=== PATIENT | male | born 1970 | race Caucasian/White ===

== ENCOUNTER 2019-04-15 11:52 | Emergency (ER) | payer SELFPAY ==
--- NOTE | 2019-04-15 13:55 | EDPHYS ---
Physician Documentation [facility] Name: Delonte Brown Age: 49 yrs Sex: Male : 1970 Arrival Date: 04/15/2019 Time: 11:55 Bed 11 Private MD: ED Physician David Estrada HPI: 04/15 16:31 This 49 yrs old Male presents to ER via Wheelchair with complaints of Back snw Pain. 16:31 The patient presents with pain that is acute. The symptoms are located in the low back. snw Onset: The symptoms/episode began/occurred suddenly, 1 week(s) ago, and became persistent. The pain does not radiate. Associated signs and symptoms: Pertinent positives: none Pertinent negatives: dysuria, fever, numbness, tingling, urinary retention, weakness. The problem was sustained pt had a back injury remotely. [place] a tweak in his lower back last week. Has been moving, lifting only light things, going up and down on ladders. This am pt stepped around a corner and had such pain in left low back, he fell to his knees. Pt ambulatory in ED, sitting in chair with ankles crossed in no distress.. 16:38 Severity of symptoms: At their worst the symptoms were incapacitating, in the emergency snw department the symptoms have improved, moderately. The patient has experienced a previous episode, many years ago. It is unknown whether or not the patient has recently seen a physician. no fever, no trauma, no incontinence. Historical: - Allergies: 12:15 Percocet; aj1 - Home Meds: 12:15 None [Active]; aj1 - PMHx: 12:15 back injury; aj1 - Immunization history:: Adult Immunizations up to date. - Social history:: Smoking status: Patient uses tobacco products, smokes two packs cigarettes per day. - Ebola Screening: : Patient denies travel to an Ebola-affected area in the 21 days before illness onset. ROS: 16:31 Constitutional: Negative for fever, chills, and weight loss, Eyes: Negative for injury, snw pain, redness, and discharge, ENT: Negative for injury, pain, and discharge, Neck: Negative for injury, pain, and swelling, Cardiovascular: Negative for chest pain, palpitations, and edema, Respiratory: Negative for shortness of breath, cough, wheezing, and pleuritic chest pain, Abdomen/GI: Negative for abdominal pain, nausea, vomiting, diarrhea, and constipation, : Negative for injury, bleeding, discharge, and swelling, MS/Extremity: Negative for injury and deformity, Skin: Negative for injury, rash, and discoloration, Neuro: Negative for headache, weakness, numbness, tingling, and seizure. 16:31 Back: Positive for decreased range of motion, pain at rest, pain with movement, of the low back area, left greater than right, no radiation. Exam: 16:29 Constitutional: This is a well developed, well nourished patient who is awake, alert, snw and in no acute distress. Head/Face: Normocephalic, atraumatic. Eyes: Pupils equal round and reactive to light, extra-ocular motions intact. Lids and lashes normal. Conjunctiva and sclera are non-icteric and not injected. Cornea within normal limits. Periorbital areas with no swelling, redness, or edema. ENT: Nares patent. No nasal discharge, no septal abnormalities noted. Tympanic membranes are normal and external auditory canals are clear. Oropharynx with no redness, swelling, or masses, exudates, or evidence of obstruction, uvula midline. Mucous membranes moist. Neck: Trachea midline, no thyromegaly or masses palpated, and no cervical lymphadenopathy. Supple, full range of motion without nuchal rigidity, or vertebral point tenderness. No Meningismus. Chest/axilla: Normal chest wall appearance and motion. Nontender with no deformity. No lesions are appreciated. Cardiovascular: Regular rate and rhythm with a normal S1 and S2. No gallops, murmurs, or rubs. Normal PMI, no JVD. No pulse deficits. Respiratory: Lungs have equal breath sounds bilaterally, clear to auscultation and percussion. No rales, rhonchi or wheezes noted. No increased work of breathing, no retractions or nasal flaring. Abdomen/GI: Soft, non-tender, with normal bowel sounds. No distension or tympany. No guarding or rebound. No evidence of tenderness throughout. Skin: Warm, dry with normal turgor. Normal color with no rashes, no lesions, and no evidence of cellulitis. MS/ Extremity: Pulses equal, no cyanosis. Neurovascular intact. Full, normal range of motion. Neuro: Awake and alert, GCS 15, oriented to person, place, time, and situation. Cranial nerves II-XII grossly intact. Motor strength 5/5 in all extremities. Sensory grossly intact. Cerebellar exam normal. Normal gait. Psych: Awake, alert, with orientation to person, place and time. Behavior, mood, and affect are within normal limits. 16:29 Back: pain, that is moderate, of the low back area, ROM is normal, normal spinal alignment noted, CVA tenderness, is absent. 16:29 Neuro: Exam negative for acute changes, Orientation: is normal. Vital Signs: 12:15 BP 104 / 78; Pulse 89; Resp 18; Temp 97.7; Pulse Ox 100% on R/A; Weight 70.31 kg (R); aj1 Height 6 ft. 1 in. (185.42 cm) (R); Pain 10/10; 12:15 Body Mass Index 20.45 (70.31 kg, 185.42 cm) aj1 MDM: 13:24 Patient medically screened. [facility] 13:56 Data reviewed: vital signs, nurses notes. Data interpreted: Pulse oximetry: on room air snw is 100 %. Interpretation: normal. Counseling: I had a detailed discussion with the patient and/or guardian regarding: the historical points, exam findings, and any diagnostic results supporting the discharge/admit diagnosis, the need for outpatient follow up, to return to the emergency department if symptoms worsen or persist or if there are any questions or concerns that arise at home, smoking cessation. Special discussion: Based on the history and exam findings, there is no indication for further emergent testing or inpatient evaluation. I discussed with the patient/guardian the need to see the back specialist for further evaluation of the symptoms. I discussed with the patient/guardian the need to see the primary care provider for further evaluation of the symptoms. Administered Medications: 14:06 Drug: TORadol 30 mg Route: IM; Site: right deltoid; hb 14:25 Follow up: Response: No adverse reaction hb Disposition: 20:36 Co-signature as Attending Physician, David Estrada MD I agree with the assessment and [facility] plan of care. Disposition: 04/15/19 13:55 Discharged to Home. Impression: Low back pain. - Condition is Stable. - Discharge Instructions: Back Pain, Adult, Musculoskeletal Pain, Steps to Quit Smoking, Smoking Hazards, Cryotherapy, Rehydration, Adult, Heat Therapy. - Prescriptions for Diclofenac Sodium 75 mg Oral Tablet Sustained Release - take 1 tablet by ORAL route 2 times per day; 30 tablet. orphenadrine citrate 100 mg Oral Tablet Sustained Release - take 1 tablet by ORAL route 2 times per day As needed; 20 tablet. - Work release form, Medication Reconciliation Form, Thank You Letter, Antibiotic Education, Prescription Opioid Use form. - Follow up: Emergency Department; When: As needed; Reason: Worsening of condition. Follow up: Private Physician; When: 2 - 3 days; Reason: Recheck today's complaints, Continuance of care, Re-evaluation by your physician. Signatures: Stephanie Fleming RN RN ajDavid Lopes MD MD cha Therrien, Shelly, ERIC-C SLUNK SKIN CURER-Christin Shultz RN RN hb Corrections: (The following items were deleted from the chart) 14:33 13:55 04/15/2019 13:55 Discharged to Home. Impression: Low back pain. Condition is hb Stable. Forms are Medication Reconciliation Form, Thank You Letter, Antibiotic Education, Prescription Opioid Use. Follow up: Emergency Department; When: As needed; Reason: Worsening of condition. Follow up: Private Physician; When: 2 - 3 days; Reason: Recheck today's complaints, Continuance of care, Re-evaluation by your physician. snw
--- NOTE | 2019-04-15 13:55 | ER ---
Nurse's Notes [facility] Name: Delonte Brown Age: 49 yrs Sex: Male : 1970 Arrival Date: 04/15/2019 Time: 11:55 Bed 11 Private MD: Diagnosis: Low back pain Presentation: 04/15 12:13 Presenting complaint: Patient states: Lower back pain for the past 2 weeks that is aj1 worse this morning, states that he is unable to walk because the pain is so bad. Patient states that he injured his back 15 years ago, denies any recent injury. States that he recent moved a lot of heavy boxes. Transition of care: patient was not received from another setting of care. Onset of symptoms was April 15, 2019. Risk Assessment: Do you want to hurt yourself or someone else? Patient reports no desire to harm self or others. Initial Sepsis Screen: Does the patient meet any 2 criteria? HR > 90 bpm. No. Patient's initial sepsis screen is negative. Does the patient have a suspected source of infection? No. Patient's initial sepsis screen is negative. Care prior to arrival: None. 12:13 Method Of Arrival: Wheelchair aj1 12:13 Acuity: NO 4 aj1 Triage Assessment: 12:15 General: Appears in no apparent distress. uncomfortable, Behavior is calm, cooperative, aj1 appropriate for age. Pain: Complains of pain in back Pain currently is 10 out of 10 on a pain scale. Neuro: Level of Consciousness is awake, alert, obeys commands. Cardiovascular: Patient's skin is warm and dry. Respiratory: Airway is patent Respiratory effort is even, unlabored, Respiratory pattern is regular, symmetrical. Musculoskeletal: Range of motion: intact in all extremities. Historical: - Allergies: 12:15 Percocet; aj1 - Home Meds: 12:15 None [Active]; aj1 - PMHx: 12:15 back injury; aj1 - Immunization history:: Adult Immunizations up to date. - Social history:: Smoking status: Patient uses tobacco products, smokes two packs cigarettes per day. - Ebola Screening: : Patient denies travel to an Ebola-affected area in the 21 days before illness onset. Screenin:38 Abuse screen: Denies threats or abuse. Denies injuries from another. Nutritional hb screening: No deficits noted. Tuberculosis screening: No symptoms or risk factors identified. Fall Risk None identified. Assessment: 13:38 General: Appears in no apparent distress. Behavior is calm, cooperative. Pain: Pain hb currently is 8 out of 10 on a pain scale. Neuro: Level of Consciousness is awake, alert, obeys commands, Oriented to person, place, time, situation. Cardiovascular: Capillary refill < 3 seconds Patient's skin is warm and dry. Respiratory: Airway is patent Respiratory effort is even, unlabored, Respiratory pattern is regular, symmetrical. GI: No signs and/or symptoms were reported involving the gastrointestinal system. : No signs and/or symptoms were reported regarding the genitourinary system. EENT: No signs and/or symptoms were reported regarding the EENT system. Derm: Skin is pink, warm \T\ dry. Musculoskeletal: Reports low back pain. 14:32 Reassessment: Patient appears in no apparent distress at this time. Patient and/or hb family updated on plan of care and expected duration. Pain level reassessed. Patient is alert, oriented x 3, equal unlabored respirations, skin warm/dry/pink. Vital Signs: 12:15 BP 104 / 78; Pulse 89; Resp 18; Temp 97.7; Pulse Ox 100% on R/A; Weight 70.31 kg (R); aj1 Height 6 ft. 1 in. (185.42 cm) (R); Pain 10/10; 12:15 Body Mass Index 20.45 (70.31 kg, 185.42 cm) aj1 ED Course: 11:55 Patient arrived in ED. rg4 12:14 Triage completed. aj1 12:15 Arm band placed on Patient placed in waiting room, Patient notified of wait time. aj1 12:40 Yady Wallace FNP-C is PHCP. snw 12:40 David Estrada MD is Attending Physician. snw 13:38 Christin Benitez, LAYTON is Primary Nurse. hb 13:38 Patient has correct armband on for positive identification. Call light in reach. hb 14:32 No provider procedures requiring assistance completed. Patient did not have IV access hb during this emergency room visit. Administered Medications: 14:06 Drug: TORadol 30 mg Route: IM; Site: right deltoid; hb 14:25 Follow up: Response: No adverse reaction hb Outcome: 13:55 Discharge ordered by . snw 14:32 Discharged to home via wheelchair, with significant other. hb 14:32 Condition: stable 14:32 Discharge instructions given to patient, Instructed on discharge instructions, follow up and referral plans. medication usage, Demonstrated understanding of instructions, follow-up care, medications, Prescriptions given X 2. 14:33 Patient left the ED. hb Signatures: Stephanie Fleming RN RN aj1 Yady Wallace, ROTARY SURFACE GRINDER-C ROTARY SURFACE GRINDER-Csnw Christin Benitez RN RN Gerri Delong rg4
[2019-04-15] MEDS ORDERED: KETOROLAC 30 MG/ML INJ ONE (14:07)
[2019-04-15 14:40] VITALS: BP 104/78; TEMP 97.7; O2SAT 100
== END 2019-04-15 14:33 | disposition home or self-care (01) ==
LOC: ER 11:52
DX: M54.5 Low back pain (principal); F17.210 Nicotine dependence, cigarettes, uncomplicated; Z88.5 Allergy status to narcotic agent
CPT/HCPCS: 96372; 99283

== ENCOUNTER 2019-07-12 15:36 | Emergency (ER) | payer SELFPAY ==
[2019-07-12] MEDS ORDERED: LIDOCAINE VISCOUS 2% SOLN 15 ML UDC ONE (16:20)
[2019-07-12] MEDS ORDERED: MAGNE/ALUM HYDROXD 30 ML UCUP ONE (16:20)
[2019-07-12 16:24] LABS: Absolute Lymphocytes (CBC) 2.4 K/uL (0.7-4.9); Basophils % 0.5 % (0-1.3); Hematocrit 46.5 % (39.6-49.0); Lymphocytes % 13.6 % (15.3-44.8); MPV 7.9 fL (7.6-11.3); RBC Red Blood Cell Count 4.94 M/uL (4.33-5.43)
[2019-07-12 16:38] LABS: BUN Blood Urea Nitrogen 4 mg/dL (7-18); Bicarbonate 27 mmol/L (21-32); Glucose Level 94 mg/dL (74-106); Potassium 3.9 mmol/L (3.5-5.1); Sodium Level 137 mmol/L (136-145)
--- NOTE | 2019-07-12 16:53 | EDPHYS ---
Physician Documentation [facility] Name: Delonte Brown Age: 49 yrs Sex: Male : 1970 Arrival Date: 07/12/2019 Time: 15:38 Bed 25 Private MD: SHIRA Physician David Estrada HPI: 07/11 16:04 This 49 yrs old Male presents to ER via Ambulatory with complaints of chidi Swelling Of Tongue, Mouth Problem, Sore Throat. 16:04 The patient presents with pain, redness, swelling. The problem is located in the hard chidi palate, soft palate, left buccal mucosa, right buccal mucosa, uvula, left aspect of posterior pharynx, right aspect of posterior pharynx and tongue. Onset: The symptoms/episode began/occurred 3 day(s) ago. Duration: The symptoms are continuous, and are steadily getting worse. Modifying factors: The symptoms are alleviated by nothing, the symptoms are aggravated by nothing. Associated signs and symptoms: Pertinent positives: pain, swelling. Severity of symptoms: At their worst the symptoms were moderate, earlier today, in the emergency department the symptoms are actually worse, mildly. The patient has not experienced similar symptoms in the past. Historical: - Allergies: 15:52 Percocet; ca1 - Home Meds: 15:52 None [Active]; ca1 - PMHx: 15:52 Back injury; ca1 - PSHx: 15:52 Neck Surgery; ca1 - Immunization history:: Adult Immunizations up to date, Flu vaccine is not up to date. - Social history:: Smoking status: Patient reports the use of cigarette tobacco products, smokes two packs cigarettes per day. - Family history:: not pertinent. ROS: 16:04 Constitutional: Negative for fever, chills, and weight loss, Eyes: Negative for injury, chidi pain, redness, and discharge, Neck: Negative for injury, pain, and swelling, Cardiovascular: Negative for chest pain, palpitations, and edema, Respiratory: Negative for shortness of breath, cough, wheezing, and pleuritic chest pain, Abdomen/GI: Negative for abdominal pain, nausea, vomiting, diarrhea, and constipation, Back: Negative for injury and pain, : Negative for injury, bleeding, discharge, and swelling, MS/Extremity: Negative for injury and deformity, Skin: Negative for injury, rash, and discoloration, Neuro: Negative for headache, weakness, numbness, tingling, and seizure, Psych: Negative for depression, anxiety, suicide ideation, homicidal ideation, and hallucinations, Allergy/Immunology: Negative for hives, rash, and allergies, Endocrine: Negative for neck swelling, polydipsia, polyuria, polyphagia, and marked weight changes, Hematologic/Lymphatic: Negative for swollen nodes, abnormal bleeding, and unusual bruising. 16:04 ENT: Positive for difficulty swallowing, Gum pain Exam: 16:04 Constitutional: This is a well developed, well nourished patient who is awake, alert, chidi and in no acute distress. Head/Face: Normocephalic, atraumatic. Eyes: Pupils equal round and reactive to light, extra-ocular motions intact. Lids and lashes normal. Conjunctiva and sclera are non-icteric and not injected. Cornea within normal limits. Periorbital areas with no swelling, redness, or edema. Neck: Trachea midline, no thyromegaly or masses palpated, and no cervical lymphadenopathy. Supple, full range of motion without nuchal rigidity, or vertebral point tenderness. No Meningismus. Chest/axilla: Normal chest wall appearance and motion. Nontender with no deformity. No lesions are appreciated. Cardiovascular: Regular rate and rhythm with a normal S1 and S2. No gallops, murmurs, or rubs. Normal PMI, no JVD. No pulse deficits. Respiratory: Lungs have equal breath sounds bilaterally, clear to auscultation and percussion. No rales, rhonchi or wheezes noted. No increased work of breathing, no retractions or nasal flaring. Abdomen/GI: Soft, non-tender, with normal bowel sounds. No distension or tympany. No guarding or rebound. No evidence of tenderness throughout. Back: No spinal tenderness. No costovertebral tenderness. Full range of motion. Skin: Warm, dry with normal turgor. Normal color with no rashes, no lesions, and no evidence of cellulitis. MS/ Extremity: Pulses equal, no cyanosis. Neurovascular intact. Full, normal range of motion. Neuro: Awake and alert, GCS 15, oriented to person, place, time, and situation. Cranial nerves II-XII grossly intact. Motor strength 5/5 in all extremities. Sensory grossly intact. Cerebellar exam normal. Normal gait. Psych: Awake, alert, with orientation to person, place and time. Behavior, mood, and affect are within normal limits. 16:04 ENT: Mouth: Oral mucosa: moist, noted to have obvious thrush, Gums: noted to have cellulitis, reddened, swollen, Tongue: is moist, is swollen, tender, displays thrush, abscess, is not appreciated, drooling, that is mild. 16:04 ENT: Posterior pharynx: Airway: normal, no evidence of obstruction. [facility] Vital Signs: 15:45 BP 153 / 99; Pulse 88; Resp 17 S; Temp 98.2(TE); Pulse Ox 100% on R/A; Weight 68.04 kg ca1 (R); Height 6 ft. 0 in. (182.88 cm) (R); Pain 10/10; 16:23 BP 147 / 103; Pulse 99; Resp 17; Temp 98.4(TE); Pulse Ox 100% on R/A; mh5 17:25 BP 138 / 84; Pulse 78; Resp 14; Temp 98.4; Pulse Ox 99% on R/A; Pain 5/10; ls4 15:45 Body Mass Index 20.34 (68.04 kg, 182.88 cm) ca1 MDM: 15:53 Patient medically screened. [facility] 16:56 Data reviewed: vital signs, nurses notes, lab test result(s), CBC, electrolytes. [facility] 16:56 ED course: pt improved with maalox and viscous lido, will treat with nystatin, mdp, chidi maalox, benadryl and keflex. follow up with dr beck, return to the er if worse. 07/11 16:04 Order name: CBC with Diff; Complete Time: 16:35 [facility] 07/11 16:04 Order name: Chem 7; Complete Time: 16:39 [facility] Administered Medications: 16:29 Drug: GI Cocktail without - (Maalox Suspension 30 ml, Lidocaine Liquid 2 % 15 ls4 ml) Route: PO; 23:21 Not Given (OTHER): predniSONE 40 mg PO once ls4 23:22 Not Given (ORDERED AFTER DISCHARGE ): nystatin 654925 units PO once; swish and swallow ls4 23:22 Not Given (ORDERED AFTER DISCHARGE ): KeFLEX 500 mg PO once ls4 Disposition: 07/12/19 16:52 Discharged to Home. Impression: Stomatitis and related lesions, Candidal stomatitis, Elevated white blood cell count. - Condition is Stable. - Discharge Instructions: Steps to Quit Smoking, Smoking Hazards, Thrush, Adult, Stomatitis, Steps to Quit Smoking, [id number], Thrush, Adult, [id number], Stomatitis, [id number]. - Prescriptions for Maalox Maximum Strength - take 30 milliliter by ORAL route 5 times per day mix with 2 teaspoons of benadryl, swish and swallow; 150 milliliter. nystatin 100,000 unit/mL Oral suspension - take 4 milliliter by ORAL route 4 times per day; 100 milliliter. Medrol (Gilberto) 4 mg Oral Tablets, Dose Pack - take 1 tablet by ORAL route as directed - follow package instructions; 1 packet. Keflex 500 mg Oral Capsule - take 1 capsule by ORAL route every 6 hours for 10 days; 28 capsule. Lidocaine Viscous - take 10 milliliter by ORAL route 5 times per day; 100 milliliter. Benadryl 25 mg Oral Capsule - take 1 capsule by ORAL route every 6 hours As needed; 30 tablet. - Medication Reconciliation Form, Thank You Letter, Antibiotic Education, Prescription Opioid Use form. - Follow up: Private Physician; When: 2 - 3 days; Reason: Recheck today's complaints, Continuance of care, Re-evaluation by your physician. Follow up: Sudhakar Beck DDS; When: 2 - 3 days; Reason: Recheck today's complaints, Re-evaluation by your physician. - Problem is new. - Symptoms have improved. Signatures: Dispatcher [employer] [facility] David Estrada MD MD cha Stewart, Lisa, RN RN ls4 Meliza Bowling RN RN ca1 Corrections: (The following items were deleted from the chart) 16:55 16:52 07/12/2019 16:52 Discharged to Home. Impression: Stomatitis and related lesions; chidi Candidal stomatitis. Condition is Stable. Discharge Instructions: Stomatitis, Stomatitis, [id number], Thrush, Adult, Thrush, Adult, [id number]. Prescriptions for Maalox Maximum Strength - take 30 milliliter by ORAL route 5 times per day mix with 2 teaspoons of benadryl, swish and swallow; 150 milliliter, nystatin 100,000 unit/mL Oral suspension - take 4 milliliter by ORAL route 4 times per day; 100 milliliter, Medrol (Gilberto) 4 mg Oral Tablets, Dose Pack - take 1 tablet by ORAL route as directed - follow package instructions; 1 packet. and Forms are Medication Reconciliation Form, Thank You Letter, Antibiotic Education, Prescription Opioid Use. Follow up: Private Physician; When: 2 - 3 days; Reason: Recheck today's complaints, Continuance of care, Re-evaluation by your physician. Problem is new. Symptoms have improved. chidi 16:55 16:55 07/12/2019 16:52 Discharged to Home. Impression: Stomatitis and related lesions; chidi Candidal stomatitis; Elevated white blood cell count. Condition is Stable. Discharge Instructions: Stomatitis, Stomatitis, [id number], Thrush, Adult, Thrush, Adult, [id number]. Prescriptions for Maalox Maximum Strength - take 30 milliliter by ORAL route 5 times per day mix with 2 teaspoons of benadryl, swish and swallow; 150 milliliter, nystatin 100,000 unit/mL Oral suspension - take 4 milliliter by ORAL route 4 times per day; 100 milliliter, Medrol (Gilberto) 4 mg Oral Tablets, Dose Pack - take 1 tablet by ORAL route as directed - follow package instructions; 1 packet, Keflex 500 mg Oral Capsule - take 1 capsule by ORAL route every 6 hours for 10 days; 28 capsule, Lidocaine Viscous - take 10 milliliter by ORAL route 5 times per day; 100 milliliter, Benadryl 25 mg Oral Capsule - take 1 capsule by ORAL route every 6 hours As needed; 30 tablet. and Forms are Medication Reconciliation Form, Thank You Letter, Antibiotic Education, Prescription Opioid Use. Follow up: Private Physician; When: 2 - 3 days; Reason: Recheck today's complaints, Continuance of care, Re-evaluation by your physician. Problem is new. Symptoms have improved. chidi 17:08 16:55 07/12/2019 16:52 Discharged to Home. Impression: Stomatitis and related lesions; ls4 Candidal stomatitis; Elevated white blood cell count. Condition is Stable. Discharge Instructions: Stomatitis, Stomatitis, [id number], Thrush, Adult, Thrush, Adult, [id number]. Prescriptions for Maalox Maximum Strength - take 30 milliliter by ORAL route 5 times per day mix with 2 teaspoons of benadryl, swish and swallow; 150 milliliter, nystatin 100,000 unit/mL Oral suspension - take 4 milliliter by ORAL route 4 times per day; 100 milliliter, Medrol (Gilberto) 4 mg Oral Tablets, Dose Pack - take 1 tablet by ORAL route as directed - follow package instructions; 1 packet, Keflex 500 mg Oral Capsule - take 1 capsule by ORAL route every 6 hours for 10 days; 28 capsule, Lidocaine Viscous - take 10 milliliter by ORAL route 5 times per day; 100 milliliter, Benadryl 25 mg Oral Capsule - take 1 capsule by ORAL route every 6 hours As needed; 30 tablet. and Forms are Medication Reconciliation Form, Thank You Letter, Antibiotic Education, Prescription Opioid Use. Follow up: Private Physician; When: 2 - 3 days; Reason: Recheck today's complaints, Continuance of care, Re-evaluation by your physician. Follow up: Sudhakar Beck; When: 2 - 3 days; Reason: Recheck today's complaints, Re-evaluation by your physician. Problem is new. Symptoms have improved. chidi
--- NOTE | 2019-07-12 16:53 | ER ---
Nurse's Notes [facility] Name: Delonte Brown Age: 49 yrs Sex: Male : 1970 Arrival Date: 07/12/2019 Time: 15:38 Bed 25 Private MD: Diagnosis: Stomatitis and related lesions;Candidal stomatitis;Elevated white blood cell count Presentation: 07/11 15:45 Chief complaint: Patient states: Thursday, weird feeling in the mouth, lost voice at that ca1 night. Had history of Laryngitis last year for about 2 weeks. Monitored temperature everyday, never had a fever. Yesterday, voice was back but started having mouth pain-tongue, cheek, lips and tongue swelling. Coronavirus screen: Proceed with normal triage. Patient denies a cough. Patient denies shortness of breath or difficulty breathing. Patient denies measured and/or subjective temperature greater than 100.4F prior to today's visit. Patient denies travel on a cruise ship or to a country the [facility] currently lists as an affected area. Patient denies contact with known and/or suspected case of COVID-19. Ebola Screen: Patient negative for fever greater than or equal to 101.5 degrees Fahrenheit, and additional compatible Ebola Virus Disease symptoms Patient denies exposure to infectious person. Patient denies travel to an Ebola-affected area in the 21 days before illness onset. No symptoms or risks identified at this time. Initial Sepsis Screen: Does the patient meet any 2 criteria? No. Patient's initial sepsis screen is negative. Does the patient have a suspected source of infection? No. Patient's initial sepsis screen is negative. Risk Assessment: Do you want to hurt yourself or someone else? Patient reports no desire to harm self or others. Onset of symptoms was July 12, 2019. 15:45 Method Of Arrival: Ambulatory ca1 15:45 Acuity: NO 4 ca1 Triage Assessment: 15:55 General: Appears in no apparent distress. uncomfortable, Behavior is calm, cooperative. ls4 Pain: Complains of pain in tongue and right aspect of posterior pharynx and left aspect of posterior pharynx and uvula and right buccal mucosa and left buccal mucosa and soft palate and hard palate and mouth Pain currently is 9 out of 10 on a pain scale. 15:55 EENT: Reports pain in hard palate, soft palate, left aspect of posterior pharynx, right ls4 aspect of posterior pharynx and tongue when swallowing. Respiratory: No deficits noted. GI: No deficits noted. : No deficits noted. : No signs and/or symptoms were reported regarding the genitourinary system. Derm: No deficits noted. No signs and/or symptoms reported regarding the dermatologic system. Musculoskeletal: No deficits noted. No signs and/or symptoms reported regarding the musculoskeletal system. Historical: - Allergies: 15:52 Percocet; ca1 - Home Meds: 15:52 None [Active]; ca1 - PMHx: 15:52 Back injury; ca1 - PSHx: 15:52 Neck Surgery; ca1 - Immunization history:: Adult Immunizations up to date, Flu vaccine is not up to date. - Social history:: Smoking status: Patient reports the use of cigarette tobacco products, smokes two packs cigarettes per day. - Family history:: not pertinent. Screenin:50 Abuse screen: Denies threats or abuse. Denies injuries from another. Nutritional ls4 screening: No deficits noted. Tuberculosis screening: No symptoms or risk factors identified. Fall Risk None identified. Assessment: 16:23 Reassessment: Patient appears in no apparent distress at this time. Patient and/or ls4 family updated on plan of care and expected duration. Pain level reassessed. Patient is alert, oriented x 3, equal unlabored respirations, skin warm/dry/pink. Patient states symptoms have improved. 16:51 Respiratory: Airway is patent Respiratory effort is even, unlabored, Breath sounds are ls4 clear. 16:52 EENT: Throat is reddened. ls4 Vital Signs: 15:45 BP 153 / 99; Pulse 88; Resp 17 S; Temp 98.2(TE); Pulse Ox 100% on R/A; Weight 68.04 kg ca1 (R); Height 6 ft. 0 in. (182.88 cm) (R); Pain 10/10; 16:23 BP 147 / 103; Pulse 99; Resp 17; Temp 98.4(TE); Pulse Ox 100% on R/A; mh5 17:25 BP 138 / 84; Pulse 78; Resp 14; Temp 98.4; Pulse Ox 99% on R/A; Pain 5/10; ls4 15:45 Body Mass Index 20.34 (68.04 kg, 182.88 cm) ca1 ED Course: 15:38 Patient arrived in ED. am2 15:47 David Estrada MD is Attending Physician. [facility] 15:51 Triage completed. ca1 15:52 Arm band placed on right wrist. ca1 16:06 Radha Angelo, RN is Primary Nurse. ls4 16:16 Patient has correct armband on for positive identification. Bed in low position. Call [facility] light in reach. Pulse ox on. NIBP on. 16:16 Initial lab(s) drawn, by me, sent to lab. mh5 16:17 Chem 7 Sent. 5 16:17 CBC with Diff Sent. mh5 16:50 No apparent distress. Resting quietly. ls4 16:50 No provider procedures requiring assistance completed. Patient maintains SpO2 ls4 saturation greater than 95% on room air. 16:55 Sudhakar Beck DDS is Referral Physician. [facility] Administered Medications: 16:29 Drug: GI Cocktail without - (Maalox Suspension 30 ml, Lidocaine Liquid 2 % 15 ls4 ml) Route: PO; 23:21 Not Given (OTHER): predniSONE 40 mg PO once ls4 23:22 Not Given (ORDERED AFTER DISCHARGE ): nystatin 900040 units PO once; swish and swallow ls4 23:22 Not Given (ORDERED AFTER DISCHARGE ): KeFLEX 500 mg PO once ls4 Outcome: 16:52 Discharge ordered by . [facility] 16:52 Discharged to home ambulatory. ls4 16:52 Condition: good 16:52 Discharge instructions given to patient, Instructed on discharge instructions, follow up and referral plans. medication usage, Prescriptions given X 4. 17:08 Patient left the ED. ls4 Signatures: David Estrada MD MD cha Martinez, Maria [facility] Penny Camacho am2 Radha Angelo, RN RN ls4 Meliza Bowling RN RN ca1
[2019-07-12 17:14] VITALS: O2SAT 100
[2019-07-12 17:16] VITALS: BP 147/103; TEMP 98.4
== END 2019-07-12 17:08 | disposition home or self-care (01) ==
LOC: ER 15:36
DX: B37.0 Candidal stomatitis (principal); D72.829 Elevated white blood cell count, unspecified; K12.1 Other forms of stomatitis; F17.210 Nicotine dependence, cigarettes, uncomplicated; Z88.5 Allergy status to narcotic agent
CPT/HCPCS: 36415; 80048; 85025; 99284